=== PATIENT | female | born 2000 | race Caucasian/White ===

== ENCOUNTER 2023-03-16 21:36 | Emergency (ER) | payer BC, OTHER ==
[2023-03-16 21:55] LABS: Bilirubin Neg (Negative); Blood, Urine 10 (Negative); Clarity Clear (Clear); Glucose, Urine (Dipstick) Normal (Negative); Ketone, Urine 15 mg/dL (Negative); Leukocyte 100 (Negative); Nitrite Negative (Negative); Protein, Urine (Dipstick) 15 mg/dl (Neg-Trace); Urobilinogen Normal mg/dL (Less than 2)
[2023-03-16 21:56] LABS: Pregnancy Test - Urine (BHCG) POSITIVE (Negative)
[2023-03-16 21:57] LABS: Pregu Control Background? CLEAR/WHITE (CLR/WHITE); Pregu Control Bar Appear? YES (CONTROL BAR)
[2023-03-16 22:18] LABS: Bacteria/HPF 1+ HPF (None Seen); CAUTI Indications for Culture Pelvic or flank pain; RBC/HPF 0-3 HPF (0-3); Squamous Epithelial 0-3 HPF (0-3)
[2023-03-16 22:20] LABS: Urine Culture Reflex No No
== END 2023-03-17 01:07 | disposition home or self-care (01) ==
LOC: CSHERS 21:36
DX: Z32.01 Encounter for pregnancy test, result positive (principal); N39.0 Urinary tract infection, site not specified
CPT/HCPCS: 36415; 81001; 81025; 84702; 99284